=== PATIENT | female | born 1990 | race Two or more races ===

== ENCOUNTER 2020-02-06 14:55 | Outpatient (REF) | payer OTHER, SELFPAY ==
[2020-02-10 04:58] LABS: CT PCR NOT DETECTED (Not Detect.); NG PCR NOT DETECTED (Not Detect.)
== END 2020-02-06 14:56 | disposition home or self-care (01) ==
LOC: HO.LAB 14:55
PROVIDERS: Visit Provider Advanced Practice Midwife
DX: Z01.419 Encounter for gynecological examination (general) (routine) without abnormal findings (principal); Z20.2 Contact with and (suspected) exposure to infections with a predominantly sexual mode of transmission
CPT/HCPCS: 87491; 87591; 88142

== ENCOUNTER 2021-06-23 10:32 | Outpatient (REF) | payer OTHER, SELFPAY ==
--- NOTE | ~2021-06-23 | XR_ITS ---
EXAMINATION: BILATERAL FOOT X-RAY CLINICAL INFORMATION: Bilateral foot pain COMPARISON: None TECHNIQUE: FINDINGS: Bone alignment is normal. No fracture or dislocation is seen. There are bilateral accessory ossicles adjacent to the medial navicular bones. Joint spaces are normal. Soft tissues are normal. XR/XR foot RT min 3V IMPRESSION: Bilateral accessory ossicles adjacent to the medial navicular bones.
--- NOTE | ~2021-06-23 | XR_ITS ---
EXAMINATION: BILATERAL FOOT X-RAY CLINICAL INFORMATION: Bilateral foot pain COMPARISON: None TECHNIQUE: FINDINGS: Bone alignment is normal. No fracture or dislocation is seen. There are bilateral accessory ossicles adjacent to the medial navicular bones. Joint spaces are normal. Soft tissues are normal. XR/XR foot LT min 3V IMPRESSION: Bilateral accessory ossicles adjacent to the medial navicular bones.
== END 2021-06-23 10:33 | disposition home or self-care (01) ==
LOC: HO.XRAY 10:32
PROVIDERS: PCP Internal Medicine; Visit Provider Internal Medicine
DX: M79.671 Pain in right foot (principal); M79.672 Pain in left foot
CPT/HCPCS: 73630

== ENCOUNTER 2021-07-22 11:58 | Outpatient (REF) | payer OTHER, SELFPAY ==
[2021-07-22 12:43] LABS: Influenza A PCR POSITIVE (Negative); Influenza B PCR NEGATIVE (Negative); Resp Syncy Virus RNA Qual PCR NEGATIVE (Negative); SARS COV2 PCR INHOUSE NEGATIVE (Negative)
== END 2021-07-22 11:59 | disposition home or self-care (01) ==
LOC: HO.LNP 11:58
PROVIDERS: Visit Provider Internal Medicine
DX: Z20.822 Contact with and (suspected) exposure to COVID-19 (principal); R05.9 Cough, unspecified
CPT/HCPCS: 0241U

== ENCOUNTER 2022-08-28 14:11 | Outpatient (REF) | payer OTHER, SELFPAY ==
[2022-08-28 14:57] LABS: Influenza A PCR NEGATIVE (Negative); Influenza B PCR NEGATIVE (Negative); Resp Syncy Virus RNA Qual PCR NEGATIVE (Negative); SARS COV2 PCR INHOUSE NEGATIVE (Negative)
== END 2022-08-28 14:12 | disposition home or self-care (01) ==
LOC: HO.LNP 14:11
PROVIDERS: Visit Provider Internal Medicine
DX: Z20.822 Contact with and (suspected) exposure to COVID-19 (principal); R51.9 Headache, unspecified; J02.9 Acute pharyngitis, unspecified
CPT/HCPCS: 0241U

== ENCOUNTER 2024-11-02 11:38 | Emergency (ER) | payer OTHER, SELFPAY ==
[2024-11-02 12:06] VITALS: BP 125/70; PULSE 87; RESP 16; TEMP 37; O2SAT 98; BMI 29.1
--- NOTE | 2024-11-02 12:07 | ED_ITS ---
HPI - General Adult General Chief complaint: Wound/Laceration Stated complaint: l ring finger laceration work related Time Seen by Provider: 11/02/24 13:28 Source: patient, RN notes reviewed and old records reviewed Mode of arrival: ambulatory Limitations: no limitations History of Present Illness ED Provider: Shawn HPI narrative: Patient is a 34-year-old right hand dominant female presenting to the ED with complaint of laceration to left ring finger sustained at work. Accidentally cut left 4th finger chopping lettuce. Not anticoagulated. Unsure last Tdap. MD complaint: finger laceration Onset (ago): minute(s) Related Data Home Medications ?Medication ?Instructions ?Recorded ?Confirmed albuterol sulfate 90 mcg/actuation inhalation 02/06/20 aerosol inhaler Previous Rx's ?Medication ?Instructions ?Recorded desogestrel 0.15 mg-ethinyl 1 tab PO DAILY 28 days #28 tabs 02/06/20 estradiol 0.03 mg tablet (Apri) Allergies Allergy/AdvReac Type Severity Reaction Status Date / Time No Known Allergies Allergy Unverified 11/02/24 12:08 Review of Systems Review of Systems: As per HPI Yes all other systems are reviewed and are negative Constitutional: Constitutional: Reports as per HPI [facility] Past Medical History Medical History (Updated 11/02/24 @ 13:37 by Genet Escobar NP) Seasonal allergies Asthma Family History Family History (Updated 02/06/20 @ 15:05 by BRENDA Jones) Father Hypertension Social History Social History (Updated 02/06/20 @ 15:01 by BRENDA Jones) Alcohol intake: never Sexual orientation: Straight/Heterosexual Physical Exam ED Vital Signs: Vital Signs - 24 hr 11/02/24 12:06 Temperature 98.6 F Pulse Rate 87 Respiratory Rate 16 Blood Pressure 125/70 Pulse Oximetry 98 Oxygen Delivery Method Room Air BMI result Body Mass Index 29.1 Vital signs have been reviewed and appear to be correct. Blood pressure normal. Heart rate normal. Respiratory rate normal. Temperature normal. Oxygen saturation normal. Const General: cooperative, healthy appearing and no acute distress Orientation/consciousness: oriented to person, oriented to place, oriented to time and patient oriented x3 Limitations: no limitations HENMT Head: Yes normocephalic and Yes atraumatic Ears: external ears normal General nose exam: Normal external nose present Face and sinus: Yes face symmetric Mouth: oropharynx normal and moist mucous membranes Throat: Yes uvula midline Eyes Pupils: Equal, round and reactive pupils present Neck Neck: Yes normal visual inspection and Yes supple Resp Effort & Inspection: normal respiratory effort and able to speak in complete sentences Auscultation: clear to auscultation bilaterally Cardio Rate: regular rate Rhythm: regular rhythm Heart sounds: S1 normal heart sound present and S2 normal heart sound present GI Palpation (GI): Soft to palpation and nontender Auscultation: normoactive bowel sounds General: Yes no CVA tenderness Back/Spine/Pelvis Back: no CVA tenderness Skin General skin exam: elasticity normal and turgor normal Neuro General: oriented to person, oriented to place, oriented to time, patient oriented x3, moves all extremities, no focal motor deficits and CN's II-XI intact bilaterally Cranial nerves: Yes Equal, round and reactive pupils present Cognition (Neuro): normal cognition Extrem General: Yes full ROM, Yes no pedal edema and Yes no calf tenderness Left upper extremity: hand Details: laceration 4th digit radial aspect distal Details: linear and superficial Psych Mental Status: mental status grossly normal Affect: normal affect Thought process: Normal thought process present Course Course Course Narrative: This is a rapid medical exam performed by Shea Escobar NP: Additional HPI, ROS, PE not included below will be deferred to primary provider. Patient is a 34-year-old right hand dominant female presenting to the ED with complaint of laceration to left ring finger sustained at work. Accidentally cut left 4th f ekaterina chopping lettuce. Not anticoagulated. Unsure last Tdap. Small laceration to radial side of finger, minor bleeding. Plan: Tdap, sutures Procedures Laceration Laceration 1: Site: hand Side (If applicable): left Size (cm): 1 Description: linear Depth: simple, single layer Local Anesthetic: lidocaine 1% Amount of anesthesia used (mL): 1 Pre-repair: wound explored, irrigated extensively and deep structures intact Skin layer closed with: nylon Number of sutures: 3 Technique: simple, interrupted Medical Decision Making Medical Decision Making MDM Narrative: Patient is a 34-year-old right hand dominant female presenting to the ED with complaint of laceration to left ring finger sustained at work. On exam patient is awake, A+Ox3, VS WNL, afebrile, normal neurological exam without focal deficits, physical exam findings as above. Given reported symptoms and physical exam findings, initial differential includes but is not limited to laceration. NO evidence of tendon injury. Lac repaired as per procedure note. Patient tolerated well. Wound care instructions discussed with patient as well as return precautions. Patient verbalized understanding of and agreement with plan. Differential Diagnosis Differential Diagnoses: The differential diagnosis associated with the presentation includes as per [facility] Admission/Observation Consideration of admission/observation: Escalation of care including admission/observation considered Patient would have been admitted to the hospital had their clinical presentation warranted hospital admission. External Record Review External record reviewed: Inpatient record, Office record and Outpatient record Discharge Plan Discharge Clinical Impression: Laceration of finger of left hand Patient Disposition: Home, Self-Care Instructions: Care For Your Stitches (DC), Finger Laceration (ED), Stitches Removal (ED) Additional Instructions: You have been evaluated in the emergency department today for a laceration to your finger. Your laceration was repaired in the emergency department with 3 sutures. Please keep the area surrounding the laceration clean and dry and keep dressing in place for the next 24 hours. After that please change the dressing and assess the wound daily. Do not submerge the wound in water until the stitches has been removed and the wound has fully healed (no washing dishes, swimming, hot tubs, etc. and ESPECIALLY no outdoor water). Keep the area out of direct sunlight for the next 6 months to help prevent scarring. You should have the sutures removed in 7-10 days. If you develop fever, redness, swelling at the site of your laceration, or thick yellow drainage please come back to the ER for a wound check. Prescriptions: No Action albuterol sulfate 90 mcg/actuation HFA aerosol inhaler inhalation desogestrel-ethinyl estradiol [Apri] 0.15-0.03 mg tablet 1 tab PO DAILY 28 Days Qty: 28 11RF Stand Alone Forms: Work/School Release Interventions: ED Discharge Assessment Last Done: 11/02/24 13:53 Print Language: Citizen Of [place]
[2024-11-02] MEDS: Diphth,Pertus(ACell),Tet Adult 0.5 ML SYRINGE IM (13:35)
[2024-11-02] MEDS: Lidocaine HCl 1 % MPF 5 ML VIAL INFILTRATI (13:35)
[2024-11-02 13:53] VITALS: BP 125/70; PULSE 87; RESP 16; TEMP 37; O2SAT 98
== END 2024-11-02 13:55 | disposition home or self-care (01) ==
PROVIDERS: Emergency Provider Emergency Medicine
DX: S61.215A Laceration without foreign body of left ring finger without damage to nail, initial encounter (principal); W45.8XXA Other foreign body or object entering through skin, initial encounter; Y93.9 Activity, unspecified; Y92.9 Unspecified place or not applicable; Y99.0 Civilian activity done for income or pay; Z23 Encounter for immunization
CPT/HCPCS: 12001; 90471; 90715; 99282; 99284; J2003

== ENCOUNTER 2024-11-02 16:05 | Emergency (ER) | payer OTHER, SELFPAY ==
--- NOTE | ~2024-11-02 | XR_ITS ---
EXAMINATION: XR KNEE, LEFT CLINICAL INFORMATION: pain, injury COMPARISON: None available. TECHNIQUE: Four views of the left knee. FINDINGS: No fracture or joint effusion. Alignment is anatomic. Joint spaces are maintained. No abnormal soft tissue calcification. XR/XR knee LT 4V IMPRESSION: Normal left knee. Electronically signed by: Deon Lamas MD 11/02/2024 04:36 PM EDT
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
[2024-11-02 16:18] VITALS: BP 113/73; BP 132/84; PULSE 96; PULSE 97; RESP 16; TEMP 36.6; O2SAT 97; O2SAT 99; BMI 33.7
[2024-11-02 17:05] VITALS: BP 104/67; PULSE 88; RESP 16; TEMP 36.8; O2SAT 97
== END 2024-11-02 17:06 | disposition home or self-care (01) ==
LOC: HO.ED 17:01
PROVIDERS: Emergency Provider Emergency Medicine
DX: S89.92XA Unspecified injury of left lower leg, initial encounter (principal); M25.562 Pain in left knee; V43.52XA Car driver injured in collision with other type car in traffic accident, initial encounter; Y93.9 Activity, unspecified; Y92.410 Unspecified street and highway as the place of occurrence of the external cause; Y99.2 Volunteer activity; Z79.899 Other long term (current) drug therapy
CPT/HCPCS: 73564; 99283

== ENCOUNTER → 2024-11-02 16:17 | Outpatient (BNV) | payer OTHER, SELFPAY | PROVIDERS: Emergency Provider Emergency Medicine; Visit Provider Radiology Diagnostic Radiology | DX: S89.92XA Unspecified injury of left lower leg, initial encounter (principal); M25.562 Pain in left knee | CPT/HCPCS: 73564 ==